=== PATIENT | male | born 1985 ===

== ENCOUNTER 2016-09-05 20:03 | Emergency (ER) | payer SELFPAY ==
[2016-09-05 20:03] VITALS: BMI 24.3
--- NOTE | 2016-09-05 20:28 | ED PDOC ---
Lower Extremity Pain/Injury Time Seen by Provider: 09/05/16 20:13 Chief Complaint (Nursing): Lower Extremity Problem/Injury Chief Complaint (Provider): right foot pain History Per: Patient History/Exam Limitations: no limitations Onset/Duration Of Symptoms: Days (x2) Current Symptoms Are (Timing): Still Present Additional Complaint(s): Kuldeep Padron is a 31 year old male who presents to the emergency department with a complaint of right foot pain associated with bruising after he dropped a tool on it at work yesterday. He denies any toe pain or active bleeding. Reported that he took ibuprofen and walks on right heel to alleviate his symptoms. PMD: none provided Past Medical History Reviewed: Historical Data, Nursing Documentation, Vital Signs Vital Signs: Last Vital Signs Temp 98.6 F 09/05/16 20:06 Pulse 84 09/05/16 20:06 Resp 17 09/05/16 20:06 BP 134/54 L 09/05/16 20:06 Pulse Ox 97 09/05/16 20:06 - Medical History PMH: No Chronic Diseases - Family History Family History: States: Unknown Family Hx - Social History Current smoker - smoking cessation education provided: Yes Alcohol: None Drugs: Denies - Allergies Allergies/Adverse Reactions: Allergies Allergy/AdvReac Type Severity Reaction Status Date / Time No Known Allergies Allergy Verified 09/12/14 10:57 Review of Systems ROS Statement: Except As Marked, All Systems Reviewed And Found Negative Musculoskeletal: Positive for: Foot Pain (right) Skin: Positive for: Bruising (right foot). Negative for: Other (active bleeding or toe pain) Physical Exam - Reviewed Nursing Documentation Reviewed: Yes Vital Signs Reviewed: Yes - Physical Exam Appears: Positive for: Well, Non-toxic, No Acute Distress Head Exam: Positive for: ATRAUMATIC, NORMAL INSPECTION, NORMOCEPHALIC Extremity: Positive for: Normal ROM (of second digit), Tenderness ( fibilar head and 2-5 toes ; greatly appreciated to 3rd digit), Other (ecchymosis on dorsal aspect of right foot). Negative for: Calf Tenderness - ECG O2 Sat by Pulse Oximetry: 97 (RA) Pulse Ox Interpretation: Normal Medical Decision Making Medical Decision Making: Initial Impression: Right foot pain Initial Plan: * Xray foot (right) no fx noted on exam at this time, however pt recommended to f.u with podiatry in 7-10 days if with pain. advised to elevate, nonweight bearing. Scribe Attestation: Documented by Karen Lim, acting as a scribe for Maria De Jesus Hall PA-C. Provider Scribe Attestation: All medical record entries made by the Scribe were at my direction and personally dictated by me. I have reviewed the chart and agree that the record accurately reflects my personal performance of the history, physical exam, medical decision making, and the department course for this patient. I have also personally directed, reviewed, and agree with the discharge instructions and disposition. Disposition - Clinical Impression Clinical Impression: Foot contusion - Patient ED Disposition Is Patient to be Admitted: No Counseled Patient/Family Regarding: Studies Performed, Diagnosis, Need For Followup, Rx Given - Disposition Referrals: Podiatry Clinic [Outside] Disposition: Routine/Home Disposition Time: 20:44 Condition: STABLE Instructions: Contusion in Adults (ED) Forms: [facility] ED School/Work Excuse
--- NOTE | 2016-09-06 08:22 | RAD ---
PROCEDURE: Right Foot Radiographs. HISTORY: foot pain, heavy object fell on patient's foot COMPARISON: None available. FINDINGS: BONES: No acute displaced fracture. JOINTS: No dislocation. SOFT TISSUES: Unremarkable. No evidence of radiopaque foreign body. OTHER FINDINGS: None. IMPRESSION: No acute displaced fracture, dislocation, or significant joint effusion identified. If symptoms persist, or if there is continued clinical concern, x-ray follow-up in 7-10 days should be considered.
[2016-09-06 12:09] VITALS: BP 134/54; PULSE 84; RESP 17; TEMP 98.6; O2SAT 97
== END 2016-09-05 21:20 | disposition home or self-care (01) ==
LOC: H.ER 20:03
DX: S90.31XA Contusion of right foot, initial encounter (principal); W22.8XXA Striking against or struck by other objects, initial encounter; Y99.0 Civilian activity done for income or pay

== ENCOUNTER 2016-11-21 09:18 | Emergency (ER) | payer BC ==
[2016-11-21 09:19] VITALS: BMI 24.3
[2016-11-21 09:21] VITALS: BP 114/71; PULSE 84; RESP 20; TEMP 98.2; O2SAT 98
--- NOTE | 2016-11-21 09:44 | ED PDOC ---
Lower Extremity Pain/Injury Time Seen by Provider: 11/21/16 09:28 Chief Complaint (Nursing): Substance Abuse Chief Complaint (Provider): Right foot pain History Per: Patient History/Exam Limitations: no limitations Onset/Duration Of Symptoms: Days (x2 days) Additional Complaint(s): 31 y/o male presents to the emergency department with a right foot pain after he slipped on foot. Reports pain with ambulation since 2 days ago. Denies any further medical complaints. Past Medical History Reviewed: Historical Data, Nursing Documentation, Vital Signs Vital Signs: Last Vital Signs Temp 98.2 F 11/21/16 09:20 Pulse 84 11/21/16 09:20 Resp 20 11/21/16 09:20 BP 114/71 11/21/16 09:20 Pulse Ox 98 11/21/16 09:20 - Medical History PMH: No Chronic Diseases - Surgical History Surgical History: No Surg Hx - Family History Family History: States: Unknown Family Hx - Social History Current smoker - smoking cessation education provided: Yes (Light Smoker < 10 Cigarettes Daily) Alcohol: None Drugs: Other - Home Medications Home Medications: Ambulatory Orders Medication Instructions Recorded Naproxen [Naprosyn] 500 mg PO Q12H #20 tab 11/21/16 - Allergies Allergies/Adverse Reactions: Allergies Allergy/AdvReac Type Severity Reaction Status Date / Time No Known Allergies Allergy Verified 11/21/16 09:37 Review of Systems ROS Statement: Except As Marked, All Systems Reviewed And Found Negative Musculoskeletal: Positive for: Foot Pain (Right) Physical Exam - Reviewed Nursing Documentation Reviewed: Yes Vital Signs Reviewed: Yes - Physical Exam Appears: Positive for: Non-toxic, No Acute Distress Head Exam: Positive for: ATRAUMATIC, NORMAL INSPECTION, NORMOCEPHALIC Skin: Positive for: Normal Color, Warm, Dry Extremity: Positive for: Tenderness (Mild swelling and tenderness to the right foot with abrasion laterally. ), Swelling. Negative for: Other (No drainage. ) Neurologic/Psych: Positive for: Alert (Sleepy but arousable), Oriented (x3). Negative for: Motor/Sensory Deficits - ECG O2 Sat by Pulse Oximetry: 98 (RA) Pulse Ox Interpretation: Normal Medical Decision Making Medical Decision Making: Time: 09:33 Initial Impression: Right foot pain Initial Plan: --Drug Screen. urine --Right foot x-ray --Reevaluation Scribe Attestation: Documented by Eunice Beckford, acting as a scribe for Nestor Ochoa MD. Provider Scribe Attestation: All medical record entries made by the Scribe were at my direction and personally dictated by me. I have reviewed the chart and agree that the record accurately reflects my personal performance of the history, physical exam, medical decision making, and the department course for this patient. I have also personally directed, reviewed, and agree with the discharge instructions and disposition. Disposition - Clinical Impression Clinical Impression: Foot contusion - Patient ED Disposition Is Patient to be Admitted: No Counseled Patient/Family Regarding: Studies Performed, Diagnosis, Need For Followup, Rx Given - Disposition Referrals: Podiatry Clinic [Outside] Disposition: Routine/Home Disposition Time: 11:22 Condition: FAIR Prescriptions: Naproxen [Naprosyn] 500 mg PO Q12H #20 tab Instructions: Foot Contusion (ED) Forms: [facility] (Eritrean)
--- NOTE | 2016-11-21 11:54 | RAD ---
PROCEDURE: Right Foot Radiographs. HISTORY: trauma COMPARISON: None. FINDINGS: BONES: Normal. No fracture. JOINTS: Normal. SOFT TISSUES: Normal. OTHER FINDINGS: None. IMPRESSION: Normal right foot radiographs.
== END 2016-11-21 12:52 | disposition home or self-care (01) ==
LOC: H.ER 09:18
DX: S90.31XA Contusion of right foot, initial encounter (principal); W19.XXXA Unspecified fall, initial encounter; Y92.89 Other specified places as the place of occurrence of the external cause

== ENCOUNTER 2018-04-27 11:17 | Emergency (ER) | payer BC, MEDICAID ==
[2018-04-27 11:18] VITALS: BMI 24.3
[2018-04-27 11:24] VITALS: TEMP 98.4
--- NOTE | 2018-04-27 12:20 | ED PDOC ---
HPI: Psych/Substance Abuse Time Seen by Provider: 04/27/18 11:35 Chief Complaint (Nursing): Substance Abuse Chief Complaint (Provider): Substance Abuse History Per: Patient History/Exam Limitations: no limitations Additional Complaint(s): Kuldeep Padron is a 33 year old male with no past medical history, who presents to the emergency department after being brought in by police. Patient was seen walking unsteadily but upon arrival, patient denies any drug or alcohol use. Patient is unable to stay awake during exam and is trying to get out of the bed. Patient is falling into stretcher and wall. He further states that he does not want medical workup and wants to sleep. Patient's state was de-escalated and was able to be reoriented verbally at this time. PMD: No provider Past Medical History Reviewed: Historical Data, Nursing Documentation, Vital Signs Vital Signs: Last Vital Signs Temp 98.4 F 04/27/18 11:21 Pulse 96 H 04/27/18 11:21 Resp 16 04/27/18 11:21 BP 138/99 H 04/27/18 11:21 Pulse Ox 99 04/27/18 11:21 - Medical History PMH: No Chronic Diseases - Surgical History Surgical History: No Surg Hx - Family History Family History: States: Unknown Family Hx - Home Medications Home Medications: Ambulatory Orders Medication Instructions Recorded Naproxen [Naprosyn] 500 mg PO Q12H #20 tab 11/21/16 - Allergies Allergies/Adverse Reactions: Allergies Allergy/AdvReac Type Severity Reaction Status Date / Time No Known Allergies Allergy Verified 04/27/18 11:21 Review of Systems ROS Statement: Except As Marked, All Systems Reviewed And Found Negative Neurological: Positive for: Incoordination, Other (unsteday gait) Physical Exam - Reviewed Nursing Documentation Reviewed: Yes Vital Signs Reviewed: Yes - Physical Exam Appears: Positive for: Non-toxic (drowsy), No Acute Distress Head Exam: Positive for: ATRAUMATIC, NORMOCEPHALIC Skin: Positive for: Normal Color, Warm, Dry Cardiovascular/Chest: Positive for: Regular Rate, Rhythm. Negative for: Murmur Respiratory: Positive for: Normal Breath Sounds. Negative for: Respiratory Distress Neurologic/Psych: Positive for: retanned leather roller II-XII (intact), Gait (unsteady). Negative for: Motor/Sensory Deficits - ECG O2 Sat by Pulse Oximetry: 99 (RA) Pulse Ox Interpretation: Normal Medical Decision Making Medical Decision Making: Time: 1141 A/P: Work up for intoxication due to unknown substance. Patient agrees to stay until clinically sober. Will consider labs with alcohol and drug screen if patient's condition is not improving. --1:1 observation Time: 1406 --Patient is clinically sober, walking in straight lines. He states he will get a cab to work. --No deficits at this time. --Patient has declined crisis evaluation for detox services --Vitals within normal limits Scribe Attestation: Documented by Xavier Baltazar, acting as a scribe for Fiona Wing MD. Provider Scribe Attestation: All medical record entries made by the Scribe were at my direction and personally dictated by me. I have reviewed the chart and agree that the record accurately reflects my personal performance of the history, physical exam, medical decision making, and the department course for this patient. I have also personally directed, reviewed, and agree with the discharge instructions and disposition. Disposition - Clinical Impression Clinical Impression: Substance abuse - Disposition Referrals: Alcoholics Anonymous [Outside] Condition: IMPROVED Additional Instructions: Follow up with primary medical doctor and seek professional help for drug use r ehabilitation. Instructions: Drug Abuse Treatment Forms: [employer] (Danish)
[2018-04-27 23:45] VITALS: BP 132/87; PULSE 89; RESP 18; O2SAT 96
== END 2018-04-27 14:06 | disposition home or self-care (01) ==
LOC: H.ER 11:17
DX: F19.10 Other psychoactive substance abuse, uncomplicated (principal)